=== PATIENT | male | born 1975 | race African-American/Black ===

== ENCOUNTER 2023-01-13 17:05 | Emergency (ER) | payer OTHER, MEDICAID ==
[~2023-01-13] VITALS: Ht 185.4 cm; Wt 93.0 kg
[2023-01-13 17:08] VITALS: TEMP 98.6; O2SAT 99
[2023-01-13] MEDS ORDERED: ONDANSETRON 4MG ODT PO STA (17:20)
[2023-01-13] MEDS ORDERED: ACETAMINOPHEN 325MG TABLET PO STA (17:20)
[2023-01-13] MEDS ORDERED: LACTATED RINGERS 1,000 ML IV SCH (17:30)
[2023-01-13 18:09] LABS: BASOPHILS % 0.2 % (0.0-2.0); EOSINOPHILS % 0.2 % (0.0-5.0); HEMATOCRIT. 49.9 % (42.0-52.0); HEMOGLOBIN. 16.4 g/dL (14.0-18.0); LYMPHOCYTES % 12.8 % (20.0-50.0); MEAN CORPUSCULAR HEMOGLOBIN 31.3 pg (28.0-32.0); MEAN CORPUSCULAR HGB CONC 32.8 g/dL (31.0-37.0); MEAN CORPUSCULAR VOLUME 95.4 fL (80.0-94.0); NEUTROPHILS % 80.8 % (40.0-76.0); RED BLOOD CELL COUNT 5.23 mill/uL (4.7-6.1); RED CELL DISTRIBUTION WIDTH 13.1 % (11.6-14.6); WHITE BLOOD COUNT 6.4 x1000/uL (4.5-11.0)
[2023-01-13 18:10] LABS: DIFFERENTIAL COMMENT 1
[2023-01-13 18:19] LABS: INDEX HEMOLYSI 1 (1-3); INDEX ICTERIC 1 (1-4); INDEX LIPEMIC 1 (1-3)
[2023-01-13 18:25] LABS: ALANINE AMINOTRANSFERASE 39 IU/L (13-61); ALBUMIN 4.1 g/dL (3.4-5.0); ASPARTATE AMINOTRANSFERASE 17 IU/L (15-37); BILIRUBIN TOTAL 0.4 mg/dL (0.1-1.0); CALCIUM 9.4 mg/dL (8.5-10.1); CARBON DIOXIDE 23 mEq/L (21-32); CHLORIDE 109 mEq/L (98-107); CREATININE 1.2 mg/dL (0.6-1.3); GLUCOSE 139 mg/dL (70-105); PROTEIN TOTAL 8.9 g/dL (6.0-8.3); SODIUM 140 mEq/L (136-145); UREA NITROGEN BLOOD 11 mg/dL (7-21)
[2023-01-13] MEDS ORDERED: ONDANSETRON HCL 4MG/2ML INJ IV ONE (18:30)
[2023-01-13] MEDS ORDERED: MORPHINE SULFATE 4 MG/ML CPJ (NOT FOR IM USE) IV ONE (18:30)
[2023-01-13 18:35] LABS: PLATELET 215 x1000/uL (130-400)
[2023-01-13 18:36] LABS: MEAN PLATELET VOLUME 9.3 fl (7.4-10.4)
[2023-01-13] MEDS ORDERED: HALOPERIDOL LACTATE 5MG/ML VIAL IM NR (21:30)
[2023-01-13] MEDS ORDERED: HALOPERIDOL LACTATE 5MG/ML VIAL IM ONE (21:30)
[2023-01-13 22:21] VITALS: BP 131/65; PULSE 51; RESP 16
== END 2023-01-13 23:02 | disposition short-term general hospital (02) ==
LOC: ER 17:05
DX: R10.13 Epigastric pain (principal); R11.2 Nausea with vomiting, unspecified; J45.909 Unspecified asthma, uncomplicated; Z20.822 Contact with and (suspected) exposure to COVID-19
CPT/HCPCS: 80053; 83690; 85025; 36415; 74177; 96361; 96374; 96372; 96375; 99285; 87426; J1630; J2405; J2270; C9803; Z7610 ×3

== ENCOUNTER 2024-02-08 10:33 | Inpatient (IN) | payer OTHER, MEDICAID ==
[~2024-02-08] VITALS: Ht 182.9 cm; Wt 83.9 kg
[2024-02-08] MEDS ORDERED: DICYCLOMINE 10 MG/5 ML ORAL SYR PO STA (10:34)
[2024-02-08 10:36] VITALS: O2SAT 99
[2024-02-08] MEDS: KETOROLAC 30MG/ML VIAL IV STA (11:07)
[2024-02-08] MEDS: MAGNESIUM/ALUMINUM HYDROXIDE/SIMETHICONE 30ML UDC PO STA (11:07)
[2024-02-08] MEDS: ONDANSETRON HCL 4MG/2ML INJ IV STA (11:07)
[2024-02-08] MEDS: DICYCLOMINE HCL 10MG CAPSULE PO SCH (11:08)
[2024-02-08] MEDS: MORPHINE SULFATE 4 MG/ML INJ (FOR IV/IM USE) IV ONE ×3 (11:11→16:08)
[2024-02-08] MEDS: FAMOTIDINE 20MG/2ML VIAL IV STA (11:11)
[2024-02-08] MEDS: SODIUM CHLORIDE 0.9% 1,000 ML IV ONE (11:11)
[2024-02-08 11:41] LABS: BASOPHILS % 0.5 % (0.0-2.0); EOSINOPHILS % 0.1 % (0.0-5.0); HEMATOCRIT. 45.1 % (42.0-52.0); HEMOGLOBIN. 14.8 g/dL (14.0-18.0); LYMPHOCYTES % 13.6 % (20.0-50.0); MEAN CORPUSCULAR HEMOGLOBIN 31.6 pg (28.0-32.0); MEAN CORPUSCULAR HGB CONC 32.9 g/dL (31.0-37.0); MEAN CORPUSCULAR VOLUME 95.9 fL (80.0-94.0); MEAN PLATELET VOLUME 9.1 fl (7.4-10.4); MONOCYTES % 4.4 % (2.0-8.0); NEUTROPHILS % 81.4 % (40.0-76.0); PLATELET 210 x1000/uL (130-400); RED CELL DISTRIBUTION WIDTH 13.1 % (11.6-14.6); WHITE BLOOD COUNT 8.1 x1000/uL (4.5-11.0)
[2024-02-08 11:48] LABS: CHLORIDE 110 mEq/L (98-107); POTASSIUM 3.8 mEq/L (3.5-5.1); SODIUM 145 mEq/L (136-145)
[2024-02-08 11:49] LABS: CALCIUM 10.1 mg/dL (8.7-10.4); CARBON DIOXIDE 27 mEq/L (21-32)
[2024-02-08 11:53] LABS: INR 0.9; PROTHROMBIN TIME 10.6 sec (9.6-11.0)
[2024-02-08 11:54] LABS: CREATININE 1.3 mg/dL (0.6-1.3); GLUCOSE 132 mg/dL (70-105); UREA NITROGEN BLOOD 10 mg/dL (9-23)
[2024-02-08 15:41] LABS: ALANINE AMINOTRANSFERASE 24 IU/L (10-49); ALBUMIN 4.5 g/dL (3.2-4.8); ASPARTATE AMINOTRANSFERASE 26 IU/L (<34); BILIRUBIN DIRECT 0.3 mg/dL (<=3.0); BILIRUBIN TOTAL 0.8 mg/dL (0.1-1.0); PROTEIN TOTAL 7.8 g/dL (6.0-8.3)
[2024-02-08] MEDS ORDERED: MAGNESIUM/ALUMINUM HYDROXIDE/SIMETHICONE 30ML UDC PO PRN (16:00)
[2024-02-08] MEDS ORDERED: ZOLPIDEM TARTRATE 5MG TABLET PO PRN (16:00)
[2024-02-08] MEDS ORDERED: ACETAMINOPHEN 325MG TABLET PO PRN ×2 (16:00)
[2024-02-08] MEDS ORDERED: NITROGLYCERIN 0.4MG TABLET SL SL PRN (16:00)
[2024-02-08] MEDS: PANTOPRAZOLE SODIUM 40 MG/VIAL IV SCH (16:00)
[2024-02-08] MEDS ORDERED: IPRATROPIUM/ALBUTEROL 0.5-3(2.5)MG/3ML NEB NEB PRN (16:00)
[2024-02-08] MEDS ORDERED: ONDANSETRON HCL 4MG/2ML INJ IV PRN (16:00)
[2024-02-08] MEDS ORDERED: DOCUSATE SODIUM 100MG CAPSULE PO PRN (16:00)
[2024-02-08] MEDS ORDERED: KETOROLAC 15MG/ML VIAL IV PRN (16:00)
[2024-02-08] MEDS ORDERED: CLONIDINE 0.1MG TABLET PO PRN (16:00)
[2024-02-08] MEDS ORDERED: GUAIFENESIN 200MG/10ML SUGAR FREE UDC PO PRN (16:00)
[2024-02-08 16:42] LABS: IRON 90 ug/dL (65-175)
[2024-02-08 16:44] LABS: ETHANOL BLOOD < 10 mg/dL (<10); TOTAL IRON BINDING CAPACITY 251 ug/dl (250-425)
[2024-02-08] MEDS: SUCRALFATE 1G TABLET PO SCH (16:45)
[2024-02-08 16:47] LABS: T4 FREE 1.34 ng/dL (0.89-1.76); THYROID STIMULATING HORMONE 0.46 uIU/mL (0.55-4.78)
[2024-02-08 16:51] LABS: FOLIC ACID (FOLATE) SERUM 19.17 ng/mL (>5.38); VITAMIN B12 SERUM 450 pg/mL (211-911)
[2024-02-08] MEDS: ENOXAPARIN 40MG/0.4ML SYR SUBCUT SCH (17:00)
[2024-02-08 17:20] VITALS: BP 101/57; PULSE 50; RESP 18; TEMP 36.33624; O2SAT 100
[2024-02-08 20:00] VITALS: BP 100/52; PULSE 63; RESP 17; TEMP 36.28068; O2SAT 100
[2024-02-08 20:37] VITALS: BP 101/57; PULSE 50; RESP 18; TEMP 36.3624
[2024-02-08] MEDS: DEXT 5%/LACTATED RINGERS 1,000 ML IV SCH (22:08)
[2024-02-08] MEDS ORDERED: IOHEXOL-350 100 ML BOTTLE ONE (23:33)
[2024-02-09] VITALS: BP 119/55; PULSE 71; RESP 18; TEMP 36.33624; O2SAT 98
[2024-02-09 01:18] LABS: CLARITY URINE CLEAR (CLEAR); COLOR URINE YELLOW (YELLOW); GLUCOSE URINE NEGATIVE (NEGATIVE); KETONES URINE NEGATIVE (NEGATIVE); LEUKOCYTE ESTERASE URINE NEGATIVE (NEGATIVE); NITRITE URINE NEGATIVE (NEGATIVE); OCCULT BLOOD URINE NEGATIVE (NEGATIVE); PROTEIN URINE 1+ (NEGATIVE)
[2024-02-09 01:26] LABS: *AMPHETAMINES SCREEN URINE NEGATIVE (NEGATIVE); *BARBITURATES SCREEN URINE NEGATIVE (NEGATIVE); *BENZODIAZEPINES SCREEN URINE NEGATIVE (NEGATIVE); *COCAINE SCREEN URINE NEGATIVE (NEGATIVE); METHADONE URINE SCREEN NEGATIVE (NEGATIVE)
[2024-02-09 01:27] LABS: CANNABINOID URINE SCREEN PRESUMPTIVE POSITIVE (NEGATIVE); ECSTASY MDMA SCREEN URINE NEGATIVE (NEGATIVE); OPIATES URINE SCREEN PRESUMPTIVE POSITIVE (NEGATIVE); PHENCYCLIDINE URINE SCREEN NEGATIVE (NEGATIVE)
[2024-02-09 01:29] LABS: RBC URINE 0-2 /hpf (0-2); SQUAMOUS EPITHELIAL CELL URINE NONE SEEN /lpf (RARE/1+); WBC URINE 0-2 /hpf (0-2)
[2024-02-09 01:30] LABS: BACTERIA URINE NONE SEEN
[2024-02-09 04:00] VITALS: BP 124/60; PULSE 60; RESP 19; TEMP 37.05852; O2SAT 100
[2024-02-09 07:57] LABS: BASOPHILS % 0.3 % (0.0-2.0); EOSINOPHILS % 0.1 % (0.0-5.0); HEMATOCRIT. 38.3 % (42.0-52.0); HEMOGLOBIN. 12.7 g/dL (14.0-18.0); LYMPHOCYTES % 22.4 % (20.0-50.0); MEAN CORPUSCULAR HEMOGLOBIN 32.6 pg (28.0-32.0); MEAN CORPUSCULAR HGB CONC 33.3 g/dL (31.0-37.0); MEAN CORPUSCULAR VOLUME 97.8 fL (80.0-94.0); MEAN PLATELET VOLUME 9.1 fl (7.4-10.4); NEUTROPHILS % 64.2 % (40.0-76.0); PLATELET 162 x1000/uL (130-400); RED BLOOD CELL COUNT 3.92 mill/uL (4.7-6.1); RED CELL DISTRIBUTION WIDTH 13.3 % (11.6-14.6); WHITE BLOOD COUNT 10.4 x1000/uL (4.5-11.0)
[2024-02-09 07:58] LABS: CHLORIDE 112 mEq/L (98-107); POTASSIUM 4.1 mEq/L (3.5-5.1); SODIUM 143 mEq/L (136-145)
[2024-02-09 08:00] VITALS: BP 102/55; PULSE 60; RESP 20; TEMP 36.83628; O2SAT 97
[2024-02-09 08:01] LABS: CARBON DIOXIDE 29 mEq/L (21-32)
[2024-02-09 08:06] LABS: CREATININE 1.1 mg/dL (0.6-1.3); GLUCOSE 99 mg/dL (70-105); UREA NITROGEN BLOOD 9 mg/dL (9-23)
[2024-02-09 08:07] LABS: ALANINE AMINOTRANSFERASE 20 IU/L (10-49)
[2024-02-09 08:08] LABS: ALBUMIN 3.5 g/dL (3.2-4.8); ASPARTATE AMINOTRANSFERASE 16 IU/L (<34); BILIRUBIN TOTAL 0.8 mg/dL (0.1-1.0); PHOSPHORUS 2.7 mg/dL (2.5-4.9); PROTEIN TOTAL 6.3 g/dL (6.0-8.3)
== END 2024-02-09 09:05 | disposition left against medical advice (07) | DRG 392 ==
LOC: ER 10:33 → 5WST 13:41 → EDBEDREQ 13:54 → 6EST 16:44
PROVIDERS: ADMIT Internal Medicine; ATTEND Internal Medicine
DX: K29.70 Gastritis, unspecified, without bleeding (principal); Z53.29 Procedure and treatment not carried out because of patient's decision for other reasons; J45.909 Unspecified asthma, uncomplicated
CPT/HCPCS: 36415; 74177; 80048; 80053; 80076; 80305; 80320; 81003; 82607; 82746; 83036; 83540; 83550; 83735; 84100; 84439; 84443; 85025; 99285; J1650; J1885; J2270; J2405; J2470; J3490; J7030; Q9967; G0480

== ENCOUNTER 2024-02-25 06:21 | Emergency (ER) | payer OTHER ==
[~2024-02-25] VITALS: Ht 190.5 cm; Wt 100.0 kg
[2024-02-25 06:23] VITALS: O2SAT 99
[2024-02-25 06:59] LABS: HEMATOCRIT. 48.7 % (42.0-52.0); HEMOGLOBIN. 15.8 g/dL (14.0-18.0); LYMPHOCYTES % 45.9 % (20.0-50.0); MEAN CORPUSCULAR HEMOGLOBIN 32.3 pg (28.0-32.0); MEAN CORPUSCULAR HGB CONC 32.5 g/dL (31.0-37.0); MEAN CORPUSCULAR VOLUME 99.4 fL (80.0-94.0); MEAN PLATELET VOLUME 8.9 fl (7.4-10.4); MONOCYTES % 9.1 % (2.0-8.0); PLATELET 204 x1000/uL (130-400); RED CELL DISTRIBUTION WIDTH 13.7 % (11.6-14.6); WHITE BLOOD COUNT 7.6 x1000/uL (4.5-11.0)
[2024-02-25] MEDS: LEVETIRACETAM 500MG PREMIX 100 ML IV ONE (07:05)
[2024-02-25 07:10] LABS: CHLORIDE 110 mEq/L (98-107); POTASSIUM 4.1 mEq/L (3.5-5.1); SODIUM 141 mEq/L (136-145)
[2024-02-25 07:11] LABS: CALCIUM 9.3 mg/dL (8.7-10.4); CARBON DIOXIDE 19 mEq/L (21-32)
[2024-02-25 07:16] LABS: CREATININE 1.3 mg/dL (0.6-1.3); GLUCOSE 89 mg/dL (70-105); UREA NITROGEN BLOOD 9 mg/dL (9-23)
[2024-02-25 07:48] LABS: CLARITY URINE CLEAR (CLEAR); COLOR URINE YELLOW (YELLOW); GLUCOSE URINE NEGATIVE (NEGATIVE); KETONES URINE NEGATIVE (NEGATIVE); LEUKOCYTE ESTERASE URINE NEGATIVE (NEGATIVE); NITRITE URINE NEGATIVE (NEGATIVE); OCCULT BLOOD URINE 1+ (NEGATIVE); PROTEIN URINE TRACE (NEGATIVE); SPECIFIC GRAVITY URINE 1.018 (1.005-1.030); UROBILINOGEN URINE 0.2 E.U./dL (0.2-1.0)
[2024-02-25 08:18] LABS: PROTHROMBIN TIME 10.9 sec (9.6-11.0)
[2024-02-25 08:24] LABS: SQUAMOUS EPITHELIAL CELL URINE RARE /lpf (RARE/1+); WBC URINE 0-2 /hpf (0-2)
[2024-02-25 08:25] LABS: BACTERIA URINE TRACE; RBC URINE 0-2 /hpf (0-2)
[2024-02-25 10:06] VITALS: BP 131/74; PULSE 69; RESP 16; TEMP 36.94740; O2SAT 99
== END 2024-02-25 10:13 | disposition home or self-care (01) ==
LOC: ER 06:21
DX: R56.9 Unspecified convulsions (principal); J45.909 Unspecified asthma, uncomplicated; Z87.19 Personal history of other diseases of the digestive system
CPT/HCPCS: 80048; 81003; 85025; 85610; 36415; 71045; 70450; 96365; 99285; J1953; Z7610 ×2

== ENCOUNTER 2024-07-27 09:08 | Emergency (ER) | payer OTHER ==
[~2024-07-27] VITALS: Ht 185.4 cm; Wt 85.0 kg
[2024-07-27 09:10] VITALS: O2SAT 99
[2024-07-27] MEDS: LEVETIRACETAM 1000MG PREMIX 100 ML IV ONE (09:47)
[2024-07-27 09:48] LABS: BASOPHILS % 0.5 % (0.0-2.0); DIFFERENTIAL COMMENT 0; EOSINOPHILS % 0.3 % (0.0-5.0); HEMATOCRIT. 43.8 % (42.0-52.0); HEMOGLOBIN. 14.3 g/dL (14.0-18.0); LYMPHOCYTES % 15.7 % (20.0-50.0); MEAN CORPUSCULAR HEMOGLOBIN 31.1 pg (28.0-32.0); MEAN CORPUSCULAR HGB CONC 32.7 g/dL (31.0-37.0); MEAN CORPUSCULAR VOLUME 95.1 fL (80.0-94.0); MEAN PLATELET VOLUME 8.8 fl (7.4-10.4); MONOCYTES % 5.4 % (2.0-8.0); NEUTROPHILS % 78.1 % (40.0-76.0); PLATELET 188 x1000/uL (130-400); RED BLOOD CELL COUNT 4.61 mill/uL (4.7-6.1); RED CELL DISTRIBUTION WIDTH 13.2 % (11.6-14.6); WHITE BLOOD COUNT 6.3 x1000/uL (4.5-11.0)
[2024-07-27] MEDS: SODIUM CHLORIDE 0.9% 1,000 ML IV ONE (09:48)
[2024-07-27 09:56] LABS: CARBON DIOXIDE 20 mEq/L (21-32); CHLORIDE 109 mEq/L (98-107); POTASSIUM 4.5 mEq/L (3.5-5.1); SODIUM 139 mEq/L (136-145)
[2024-07-27 09:57] LABS: CALCIUM 9.3 mg/dL (8.7-10.4)
[2024-07-27 10:02] LABS: CREATININE 1.1 mg/dL (0.6-1.3); GLUCOSE 85 mg/dL (70-105); UREA NITROGEN BLOOD 7 mg/dL (9-23)
[2024-07-27 11:16] LABS: *AMPHETAMINES SCREEN URINE NEGATIVE (NEGATIVE); *BARBITURATES SCREEN URINE NEGATIVE (NEGATIVE); *BENZODIAZEPINES SCREEN URINE NEGATIVE (NEGATIVE); *COCAINE SCREEN URINE NEGATIVE (NEGATIVE); METHADONE URINE SCREEN NEGATIVE (NEGATIVE); OPIATES URINE SCREEN NEGATIVE (NEGATIVE)
[2024-07-27 11:17] LABS: CANNABINOID URINE SCREEN PRESUMPTIVE POSITIVE (NEGATIVE); ECSTASY MDMA SCREEN URINE NEGATIVE (NEGATIVE); PHENCYCLIDINE URINE SCREEN NEGATIVE (NEGATIVE)
[2024-07-27] MEDS: MORPHINE SULFATE 4 MG/ML INJ (FOR IV/IM USE) IV ONE (11:54)
[2024-07-27] MEDS ORDERED: KEPP500 MT (13:56)
[2024-07-27] MEDS: ONDANSETRON HCL 4MG/2ML INJ IV ONE (14:14)
[2024-07-27 14:28] VITALS: BP 117/78; PULSE 65; RESP 15; TEMP 36.4; O2SAT 99
== END 2024-07-27 14:28 | disposition home or self-care (01) ==
LOC: ER 09:08
DX: R56.9 Unspecified convulsions (principal); Z98.890 Other specified postprocedural states
CPT/HCPCS: 80305; 80048; 80320; 85025; 36415; 70450; 72125; 96365; 96375; 99285; J1953; J2405; J2270; J7030; G0480

== ENCOUNTER 2024-11-04 11:57 | Emergency (ER) | payer MEDICAID ==
[~2024-11-04] VITALS: Ht 180.3 cm; Wt 85.0 kg
[~2024-11-04 11:57] MED LIST: KEPP500 MT
[2024-11-04 11:59] VITALS: O2SAT 98
[2024-11-04] MEDS: LEVETIRACETAM 1000MG PREMIX 100 ML IV ONE (12:47)
[2024-11-04] MEDS: HALOPERIDOL LACTATE 5MG/ML VIAL IM ONE (13:04)
[2024-11-04] MEDS: ONDANSETRON HCL 4MG/2ML INJ IV ONE (13:04)
[2024-11-04 13:37] LABS: CLARITY URINE CLEAR (CLEAR); COLOR URINE YELLOW (YELLOW); GLUCOSE URINE NEGATIVE (NEGATIVE); KETONES URINE TRACE (NEGATIVE); LEUKOCYTE ESTERASE URINE NEGATIVE (NEGATIVE); NITRITE URINE NEGATIVE (NEGATIVE); OCCULT BLOOD URINE 2+ (NEGATIVE); PH URINE 5.0 (4.5-8.0); PROTEIN URINE 2+ (NEGATIVE); SPECIFIC GRAVITY URINE 1.016 (1.005-1.030); UROBILINOGEN URINE 0.2 E.U./dL (0.2-1.0)
[2024-11-04 13:51] LABS: BACTERIA URINE TRACE; SQUAMOUS EPITHELIAL CELL URINE RARE /lpf (RARE/1+)
[2024-11-04 13:52] LABS: RBC URINE 0-2 /hpf (0-2)
[2024-11-04 13:55] LABS: *AMPHETAMINES SCREEN URINE NEGATIVE (NEGATIVE); WBC URINE 0-2 /hpf (0-2)
[2024-11-04 13:56] LABS: *BARBITURATES SCREEN URINE NEGATIVE (NEGATIVE); *BENZODIAZEPINES SCREEN URINE NEGATIVE (NEGATIVE); *COCAINE SCREEN URINE NEGATIVE (NEGATIVE); CANNABINOID URINE SCREEN PRESUMPTIVE POSITIVE (NEGATIVE); ECSTASY MDMA SCREEN URINE NEGATIVE (NEGATIVE); METHADONE URINE SCREEN NEGATIVE (NEGATIVE); OPIATES URINE SCREEN NEGATIVE (NEGATIVE); PHENCYCLIDINE URINE SCREEN NEGATIVE (NEGATIVE)
[2024-11-04] MEDS ORDERED: KEPP500 MT (15:04)
[2024-11-04] MEDS: ACETAMINOPHEN 500MG TABLET PO ONE (15:28)
[2024-11-04 17:13] VITALS: BP 108/64; PULSE 53; RESP 16; TEMP 37.1; O2SAT 97
[2024-11-04 17:34] LABS: CREATININE 1.3 mg/dL (0.6-1.3)
[2024-11-04 17:35] LABS: ETHANOL BLOOD < 10 mg/dL (<10); UREA NITROGEN BLOOD 9 mg/dL (9-23)
== END 2024-11-04 17:15 | disposition home or self-care (01) ==
LOC: ER 12:22
DX: R56.9 Unspecified convulsions (principal); F12.90 Cannabis use, unspecified, uncomplicated; F10.90 Alcohol use, unspecified, uncomplicated; Z91.148 Patient's other noncompliance with medication regimen for other reason; Z79.899 Other long term (current) drug therapy
CPT/HCPCS: 80305; 80048; 81003; 80320; 36415; 70450; 93005; 96374; 99285; J1953; Z7610; J1630; G0480

== ENCOUNTER 2025-01-27 11:32 | Emergency (ER) | payer MEDICAID ==
[2025-01-27 11:34] VITALS: PULSE 66; RESP 16; O2SAT 99
== END 2025-01-27 11:51 | disposition left against medical advice (07) ==
LOC: ER 11:32
DX: Z76.0 Encounter for issue of repeat prescription (principal); Z53.21 Procedure and treatment not carried out due to patient leaving prior to being seen by health care provider
CPT/HCPCS: 99281